=== PATIENT | male | born 1940 | race Caucasian/White ===

== ENCOUNTER → 2017-09-26 15:24 | Outpatient (CLI) | payer OTHER | END | disposition home or self-care (01) | LOC: PPHC 09:00 → NUTRICION 15:24 | DX: E11.9 Type 2 diabetes mellitus without complications (principal); E66.8 Other obesity; I10 Essential (primary) hypertension ==

== ENCOUNTER 2018-08-27 15:03 | Outpatient (CLI) | payer OTHER | END 2018-08-27 15:06 | disposition home or self-care (01) | LOC: RAD 15:03 | DX: R05 Cough (principal) ==

== ENCOUNTER → 2019-05-30 | Outpatient (CLI) | payer OTHER | END | disposition home or self-care (01) | LOC: RAD 13:22 | DX: G44.89 Other headache syndrome (principal); J32.8 Other chronic sinusitis ==

== ENCOUNTER 2019-06-06 14:33 | Outpatient (CLI) | payer OTHER | END 2019-06-06 14:36 | disposition home or self-care (01) | LOC: MRI 14:33 | DX: S06.5X0A Traumatic subdural hemorrhage without loss of consciousness, initial encounter (principal) | CPT/HCPCS: 70551 ==

== ENCOUNTER 2019-06-12 07:46 | Outpatient (CLI) | payer OTHER | END 2019-06-12 08:44 | disposition home or self-care (01) | LOC: NUCLEAR 07:46 | DX: I11.0 Hypertensive heart disease with heart failure (principal) | CPT/HCPCS: 78452; 93017; 93306; A9500 ==

== ENCOUNTER 2019-10-09 07:59 | Outpatient (CLI) | payer OTHER | END 2019-10-09 08:14 | disposition home or self-care (01) | LOC: TOM 07:59 | DX: R31.0 Gross hematuria (principal) | CPT/HCPCS: 74177; Q9965 ==

== ENCOUNTER → 2020-08-11 | Outpatient (CLI) | payer OTHER | END | disposition home or self-care (01) | LOC: NUCLEAR 08:49 | PROVIDERS: ATTEND Internal Medicine Cardiovascular Disease | DX: I10 Essential (primary) hypertension (principal); I20.8 Other forms of angina pectoris | CPT/HCPCS: 78452; 93017; 93306; A9500 ==

== ENCOUNTER 2020-11-12 15:12 | Outpatient (CLI) | payer OTHER | END 2020-11-12 15:23 | disposition home or self-care (01) | LOC: RAD 15:12 | PROVIDERS: ATTEND Specialist | DX: R05 Cough (principal) ==

== ENCOUNTER 2021-09-29 13:51 | Outpatient (CLI) | payer OTHER | END 2021-09-29 13:54 | disposition home or self-care (01) | LOC: RAD 13:51 | PROVIDERS: ATTEND Internal Medicine Sports Medicine | DX: R06.09 Other forms of dyspnea (principal); R05.8 Other specified cough; R06.02 Shortness of breath ==

== ENCOUNTER 2021-10-01 10:57 | Outpatient (CLI) | payer OTHER | END 2021-10-01 11:04 | disposition home or self-care (01) | LOC: TOM 10:57 | PROVIDERS: ATTEND Internal Medicine Sports Medicine | DX: G93.89 Other specified disorders of brain (principal) ==

== ENCOUNTER 2022-02-02 11:41 | Outpatient (CLI) | payer OTHER | END 2022-02-02 11:43 | disposition home or self-care (01) | LOC: MRI 11:41 | DX: M25.561 Pain in right knee (principal); M25.562 Pain in left knee | CPT/HCPCS: 73221 ==

== ENCOUNTER 2022-03-15 14:55 | Outpatient (CLI) | payer OTHER | END 2022-03-15 15:00 | disposition home or self-care (01) | LOC: RAD 14:55 | PROVIDERS: ATTEND Orthopaedic Surgery | DX: M17.0 Bilateral primary osteoarthritis of knee (principal); M25.562 Pain in left knee; M25.561 Pain in right knee ==

== ENCOUNTER 2022-06-21 07:40 | Outpatient (CLI) | payer OTHER | END 2022-06-21 07:45 | disposition home or self-care (01) | LOC: NUCLEAR 07:40 | PROVIDERS: ATTEND Internal Medicine Cardiovascular Disease | DX: I25.10 Atherosclerotic heart disease of native coronary artery without angina pectoris (principal); I11.9 Hypertensive heart disease without heart failure; Z88.0 Allergy status to penicillin | CPT/HCPCS: 78452; 93017; A9500 ==

== ENCOUNTER 2022-06-21 10:31 | Outpatient (CLI) | payer OTHER | END 2022-06-21 10:32 | disposition home or self-care (01) | LOC: SONOGRAMA 10:31 | PROVIDERS: ATTEND Internal Medicine Nephrology | DX: N18.31 Chronic kidney disease, stage 3a (principal); I12.9 Hypertensive chronic kidney disease with stage 1 through stage 4 chronic kidney disease, or unspecified chronic kidney disease ==

== ENCOUNTER 2022-11-03 14:47 | Outpatient (CLI) | payer OTHER | END 2022-11-03 14:49 | disposition home or self-care (01) | LOC: RAD 14:47 | PROVIDERS: ATTEND Internal Medicine Nephrology | DX: M18.31 Unilateral post-traumatic osteoarthritis of first carpometacarpal joint, right hand (principal); I12.9 Hypertensive chronic kidney disease with stage 1 through stage 4 chronic kidney disease, or unspecified chronic kidney disease ==

== ENCOUNTER 2024-07-12 09:43 | Outpatient (CLI) | payer OTHER | END 2024-07-12 09:44 | disposition home or self-care (01) | LOC: NUCLEAR 09:43 | PROVIDERS: ATTEND Internal Medicine Sports Medicine | DX: I25.10 Atherosclerotic heart disease of native coronary artery without angina pectoris (principal) ==

== ENCOUNTER 2024-08-30 09:38 | Outpatient (CLI) | payer OTHER | END 2024-08-30 09:45 | disposition home or self-care (01) | LOC: RAD 09:38 | PROVIDERS: ATTEND General Practice | DX: R05.9 Cough, unspecified (principal) ==

== ENCOUNTER 2024-09-05 11:01 | Outpatient (CLI) | payer OTHER | END 2024-09-05 11:07 | disposition home or self-care (01) | LOC: SONOGRAMA 11:01 | DX: M83.1 Senile osteomalacia (principal); I12.9 Hypertensive chronic kidney disease with stage 1 through stage 4 chronic kidney disease, or unspecified chronic kidney disease; E11.22 Type 2 diabetes mellitus with diabetic chronic kidney disease ==

== ENCOUNTER 2025-02-03 07:29 | Outpatient (CLI) | payer OTHER | END 2025-02-03 07:31 | disposition home or self-care (01) | LOC: NUCLEAR 07:29 | PROVIDERS: ATTEND Internal Medicine Cardiovascular Disease | DX: I20.9 Angina pectoris, unspecified (principal) | CPT/HCPCS: 78452; 93017; A9500 ==